=== PATIENT | female | born 1970 | race Caucasian/White ===

== ENCOUNTER 2025-08-27 10:13 | Outpatient (AMB) | payer OTHER, SELFPAY ==
--- NOTE | 2025-08-27 10:14 | MHC.OFFVIS ---
Intake Visit Reasons: NPV Anca Ref- eval for back injection Intake Note: Patient is a 54 year old female here today for a new patient visit. Patient has been sent by neurogurgery for a right t7-8 disc herniation and right SI joint pain PT works in [employer] and that makes her back hurts more ice dose not help tyl helps a little and heat as well one disc repare and two has now statred to make pain HPI Comments Details: Ms. Chapman is a 54-year-old female seen in consultation today for right-sided lower thoracic back pain as well as sacroiliac joint discomfort. Patient was referred to our department by her neurosurgical team. Patient does believe she will be obtaining injection in her back on Monday. She is not sure why she is here today. She would like to establish care with our office today. She reports 7/10 pain primarily over the right side low back. She also develops midthoracic back pain on the right with activity. Patient has completed physical therapy. Patient has been using Tylenol for pain. She denies any incontinence, saddle anesthesia urinary retention. Patient did undergo lumbar fusion at L4-[address] Jones this year. I reviewed the referring provider's no prior to consultation. [facility] Surgical History (Updated 08/25/25 @ 16:11 by Clara Monroy MA) History of neck surgery H/O hernia repair H/O hand surgery History of back surgery Review of Systems Narrative Midthoracic back pain. Right-sided low back pain. No incontinence, saddle anesthesia or urinary retention. Physical Exam Exam Exam: Thoracic spine: He is tender to the right T8 paraspinal musculature. Her chest rises and falls symmetrically. She does have discomfort with rotation of her trunk to the right. No scapular winging. Lumbar Spine: She is tender to the right lower lumbar facets and sacroiliac joint. She has full range motion of the lumbar spine. She does have an increase in pain with facet loading. Special Tests: Lhermittes sign was negative Heel Toe walk is normal Left straight leg raise: Negative Right straight leg raise: Negative Special tests Cari test is positive right Ganslen's test is positive right SI Joint compression test positive right Antonieta test negative Piriformis stretch is negative Lower Extremities: Full range of motion bilateral lower extremities. No calf pain or edema. Neuro: Sensation: Intact to lower extremities bilaterally Strength L2 (Psoas): 5/5 on the left and 5/5 on the right. L3 (Quads): 5/5 on the left and 5/5 on the right. L4 (Ant tibialis): 5/5 on the left and 5/5 on the right. L5 (EHL) 5/5 on the left and 5/5 on the right. S1 (Gastroc): 5/5 on the left and 5/5 on the right. DTR L4: (Patellar) Left 2 Right 2 S1: (Achilles) Left 2 Right 2 Babinski Downgoing No pathologic clonus. No involuntary movement. Results Reviewed Results Reviewed: MRI thoracic spine with and without contrast 07/28/2025 impression: No evidence of diskitis osteomyelitis. Multilevel degenerative changes of the thoracic spine with moderate spinal stenosis at T7-8. MRI lumbar spine 07/28/2025 impression: Postsurgical changes at L4-5 decompression with small subcutaneous enhancing fluid collection enhancing granulation tissue. This is steroidal lady indeterminate. No epidural abscess evident. Multilevel degenerative changes of the lumbar spine with moderate spinal canal stenosis at L2-3 and L3-4. Assessment & Plan Assessment & Plan (1) Thoracic radiculopathy: Code(s): M54.14 - Radiculopathy, thoracic region Category: Medical (2) Sacroiliitis: Code(s): M46.1 - Sacroiliitis, not elsewhere classified Category: Medical Plan Ms. Chapman is a 54-year-old female seen in consultation today for right-sided midthoracic pain secondary to disc bulge at T7-8 as well as sacroiliitis on the right side. Patient has failed conservative treatment. She was referred to our office for epidural injection. Patient does believe she has an injection scheduled for Monday. If she does not get that injection we are happy to order right SI joint injection as her SI joint is the most significant problem according to her. She will contact our office and we will obtain prior authorization. Otherwise she will continue her home exercise plan and medications as prescribed. Follow-up with our office as needed. We discussed the benefits of proper nutrition and exercise to maintain a healthy body weight to improve longevity and function. We also discussed the benefits of proper lifting techniques, core strengthening and proper posture. Thank you for allowing me to participate in the care of your patient. Coding Level of Care Code Tele New Pt Level 3 (69062) Diagnoses Thoracic radiculopathy M54.14 Sacroiliitis M46.1
== END 2025-08-27 10:41 | disposition home or self-care (01) ==
LOC: HO.HPHYS 10:13
PROVIDERS: Visit Provider Physician Assistant
DX: M54.14 Radiculopathy, thoracic region (principal); M46.1 Sacroiliitis, not elsewhere classified
CPT/HCPCS: 99203